=== PATIENT | male | born 1995 | race Caucasian/White ===

== ENCOUNTER 2017-12-30 13:48 | Emergency (ER) | payer OTHER ==
[~2017-12-30] VITALS: Ht 180.3 cm; Wt 99.8 kg
[2017-12-30 13:54] VITALS: BP_SYST 138
--- NOTE | 2017-12-30 13:57 | NUR ---
Pt to hallway bed 1
--- NOTE | 2017-12-30 13:57 | NUR ---
Pt c/o Right ankle pain progressively worsening since Wednesday. Pt has a hx of gout. No trauma or recent injury reported. Able to move foot about right ankle and dorsi-flex without difficulty.
--- NOTE | 2017-12-30 14:15 | NUR ---
Isabelle, PAC at bedside.
--- NOTE | 2017-12-30 14:25 | NUR ---
Pt taken to radiology via wheelchair in stable condition
--- NOTE | 2017-12-30 14:35 | NUR ---
Pt returns from x-ray.
[2017-12-30] MEDS ORDERED: NAPROXEN 250 MG TABLET PO ONE (15:45)
[2017-12-30 15:50] VITALS: BP_SYST 127
--- NOTE | 2017-12-30 15:50 | NUR ---
Patient given written and verbal discharge instructions and verbalizes understanding. ER MD discussed with patient the results and treatment provided. Patient in stable condition. ID arm band removed. Rx of Naproxen given. Patient educated on pain management and to follow up with PMD. Pain Scale 2/10. Opportunity for questions provided and answered. Medication side effect fact sheet provided.
== END 2017-12-30 15:50 | disposition home or self-care (01) ==
LOC: SED 13:48
DX: M10.9 Gout, unspecified (principal); F17.200 Nicotine dependence, unspecified, uncomplicated
CPT/HCPCS: 36415; 84550-TC; 99285

== ENCOUNTER 2018-09-21 03:27 | Emergency (ER) | payer OTHER ==
[~2018-09-21] VITALS: Ht 180.3 cm; Wt 99.8 kg
[2018-09-21 03:40] VITALS: BP_SYST 163
--- NOTE | 2018-09-21 03:40 | NUR ---
Placed in room 04 . Placed on classroom monitor, blood pressure machine and pulse oximeter. To gown for exam. Side rails up.
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
--- NOTE | 2018-09-21 03:48 | NUR ---
ER at bedside examining patient.
--- NOTE | 2018-09-21 04:42 | NUR ---
SUGAR TONG SPLINT APPLIED TO THE RIGHT FOREARM. PATIENT TOLERATED PROCEDURE WELL. CAP REFILL <3. PATIENT ABLE TO WIGGLE FINGERS. WILL CONTINUE TO MONITOR.
[2018-09-21 04:58] VITALS: BP_SYST 143
--- NOTE | 2018-09-21 04:58 | NUR ---
Patient given written and verbal discharge instructions and verbalizes understanding. ER MD discussed with patient the results and treatment provided. Patient in stable condition. ID arm band removed. No Rx given. Patient educated on pain management and to follow up with PMD. Pain Scale 2/10 tolerable to patient. Opportunity for questions provided and answered. Medication side effect fact sheet provided.
== END 2018-09-21 04:58 | disposition home or self-care (01) ==
LOC: SED 03:27
DX: S63.262A Dislocation of metacarpophalangeal joint of right middle finger, initial encounter (principal); Y04.0XXA Assault by unarmed brawl or fight, initial encounter; Y93.89 Activity, other specified; Y92.89 Other specified places as the place of occurrence of the external cause; Y99.8 Other external cause status
CPT/HCPCS: 99283

== ENCOUNTER 2020-09-10 18:04 | Emergency (ER) | payer MEDICAID, OTHER ==
[~2020-09-10] VITALS: Ht 177.8 cm; Wt 111.1 kg
[2020-09-10 18:26] VITALS: BP_SYST 137
[2020-09-10 20:41] VITALS: BP_SYST 143
== END 2020-09-10 20:46 | disposition home or self-care (01) ==
LOC: SED 18:04
DX: S93.491A Sprain of other ligament of right ankle, initial encounter (principal); F17.200 Nicotine dependence, unspecified, uncomplicated; F12.90 Cannabis use, unspecified, uncomplicated; W10.8XXA Fall (on) (from) other stairs and steps, initial encounter; Y93.89 Activity, other specified; Y92.89 Other specified places as the place of occurrence of the external cause; Y99.8 Other external cause status
CPT/HCPCS: 99283

== ENCOUNTER 2021-09-09 22:38 | Emergency (ER) | payer MEDICAID ==
[~2021-09-09] VITALS: Ht 180.3 cm; Wt 113.4 kg
[2021-09-09 22:50] VITALS: BP_SYST 144
[2021-09-09 23:00] VITALS: BP_SYST 139
[2021-09-09] MEDS ORDERED: KETOROLAC TROMETHAMINE 60 MG/2 ML VIAL IM ONE (23:00)
[2021-09-09] MEDS ORDERED: NAPR-1172 PO (23:37)
[2021-09-09] MEDS ORDERED: COLC0.6T67 PO (23:37)
[2021-09-09] MEDS ORDERED: ALLO100T91 PO (23:37)
== END 2021-09-09 23:49 | disposition home or self-care (01) ==
LOC: SED 22:38
DX: M10.9 Gout, unspecified (principal)
CPT/HCPCS: 96372; 99283; J1885